=== PATIENT | female | born 1980 | race Caucasian/White ===

== ENCOUNTER 2020-07-22 14:07 | Emergency (ER) | payer OTHER ==
[~2020-07-22] VITALS: Ht 157.5 cm; Wt 110.5 kg
[2020-07-22] MEDS ORDERED: FAMOTIDINE INJ 20MG/2ML VIAL (S0028 PER 1) IVP ONE (14:45)
[2020-07-22] MEDS ORDERED: METF-839 PO (14:52)
[2020-07-22] MEDS ORDERED: LEVO112T2 PO (14:52)
[2020-07-22] MEDS ORDERED: LISI-542 PO (14:52)
[2020-07-22] MEDS ORDERED: VIIB40TA PO (14:52)
[2020-07-22] MEDS ORDERED: CLONI1TA PO (14:52)
[2020-07-22] MEDS ORDERED: ATOR1TAB21 PO (14:52)
[2020-07-22] MEDS ORDERED: GABA-843 PO ×2 (14:52)
[2020-07-22] MEDS ORDERED: ACETAMINOPHEN 500 MG TAB PO ONE (15:30)
[2020-07-22] MEDS ORDERED: FAMO1TAB25 PO (16:13)
[2020-07-22 17:00] VITALS: BP 101/55
== END 2020-07-22 17:16 | disposition home or self-care (01) ==
LOC: M ED 14:07
DX: T78.40XA Allergy, unspecified, initial encounter (principal); E11.9 Type 2 diabetes mellitus without complications; I10 Essential (primary) hypertension; E03.9 Hypothyroidism, unspecified; G89.29 Other chronic pain; M54.5 Low back pain; F41.9 Anxiety disorder, unspecified; Z79.899 Other long term (current) drug therapy

== ENCOUNTER → 2023-02-23 | Outpatient (REF) ==
[~2023-02-23] MED LIST: ATOR1TAB21 PO; CLONI1TA PO; FAMO10TA50 PO; GABA-282 PO; LEVO112T2 PO; LISI5TAB11 PO; METF-839 PO; VIIB40TA PO
== END ==
LOC: M PLAIMG 11:25
PROVIDERS: ATTEND Internal Medicine
DX: M25.561 Pain in right knee (principal); M54.50 Low back pain, unspecified

== ENCOUNTER → 2023-11-09 | Outpatient (REF) | LOC: M PLAIMG 13:10 | PROVIDERS: ATTEND Internal Medicine | DX: R52 Pain, unspecified (principal); M47.812 Spondylosis without myelopathy or radiculopathy, cervical region; M77.32 Calcaneal spur, left foot ==